=== PATIENT | male | born 1980 | race Caucasian/White ===

== ENCOUNTER 2019-01-21 21:07 | Emergency (ER) | payer SELFPAY ==
[~2019-01-21] VITALS: Ht 175.3 cm; Wt 104.3 kg
[2019-01-21 21:16] VITALS: Ht 175.3 cm; Wt 104.3 kg
[2019-01-21 22:27] VITALS: BP 149/96
== END 2019-01-21 22:27 | disposition other institution (70) ==
LOC: ED 21:07
DX: F10.129 Alcohol abuse with intoxication, unspecified (principal); M25.561 Pain in right knee; Z13.89 Encounter for screening for other disorder

== ENCOUNTER 2019-01-21 21:07 | Emergency (ER) | payer OTHER | END 2019-01-21 22:27 | disposition other institution (70) | LOC: ED 21:07 | DX: Z02.89 Encounter for other administrative examinations (principal) ==